=== PATIENT | female | born 1945 | race Caucasian/White ===

== ENCOUNTER → 2023-10-23 10:30 | Outpatient (REF) | payer MEDICARE, SELFPAY | LOC: WDC 10:30 | PROVIDERS: ATTENDING PHYSICIAN Surgery; FAMILY PHYSICIAN Family Medicine | DX: Z12.31 Encounter for screening mammogram for malignant neoplasm of breast (principal); C50.411 Malignant neoplasm of upper-outer quadrant of right female breast | CPT/HCPCS: 77063; 77067 ==

== ENCOUNTER → 2024-01-20 10:27 | Outpatient (REF) | payer MEDICARE, SELFPAY | LOC: HWRAD 10:27 | PROVIDERS: ATTENDING PHYSICIAN Nurse Practitioner Family; FAMILY PHYSICIAN Family Medicine | DX: N81.2 Incomplete uterovaginal prolapse (principal) | CPT/HCPCS: 76830; 76856 ==

== ENCOUNTER 2024-08-23 12:23 | Emergency (ER) | payer MEDICARE, SELFPAY ==
[2024-08-23] VITALS (21 sets, daily range): BP systolic 122–160; BP diastolic 53–82
[2024-08-23] MEDS: DILAUDID 0.5 MG IV (12:41)
--- NOTE | 2024-08-23 13:32 | ED.MUSCINJ ---
HPI-Injury
<Benigno Amado PA-C - Last Filed: 08/23/24 14:03>
General
Chief Complaint: Musculo-Skeletal Complaint
Source: patient
Exam Limitations: none
Time Seen by Provider: 08/23/24 12:33
History of Present Illness-Injury
Initial Injury comments:
Patient 79-year-old female presents via EMS from home with complaints of left hip pain. She states she turned to her left and felt a pop in her and since then has had pain and deformity to the left leg. She has a remote history of left hip
replaced. She did not hit her head. She is not anticoagulated.
Past History
<Benigno Amado PA-C - Last Filed: 08/23/24 14:03>
Past History
ED Past Medical History: Other (spinal stenosis, under care of [facility] )
ED Past Surgical History: and Orthopedic (Laminectomy, left hip replacement)
Social History
Tobacco: Non-smoker
Personal:
Living: alone
Employment: Retired
Phy Exam
<ARTEM Ferrari Last Filed: 08/23/24 14:03>
Physical Exam
Physical Exam:
General: Well-appearing female no acute respiratory distress
HEENT: Normocephalic atraumatic
Heart: Regular rate and rhythm
Lungs: Clear no wheeze
Musculoskeletal exam: Left leg is shortened and internally rotated she is tender about the hip
Vascular: 2+ DP pulse left foot
Injury Course
<Benigno Amado PA-C - Last Filed: 08/23/24 14:03>
Orders/Labs/Results
Orders:
Orders
08/23/24 12:37
CR Hip - LT without Pel 1 Vw Urgent
Comment:
Reason For Exam: dislocation
08/23/24 12:38
HYDROmorphone [Dilaudid] 0.5 mg IV NOW STA
08/23/24 13:04
Propofol [Diprivan] 20 ml .ROUTE .STK-MED
08/23/24 13:22
CR Hip - LT without Pel 1 Vw Urgent
Comment:
Reason For Exam: post reduction
<Fox Rowland MD - Last Filed: 08/23/24 14:01>
Orders/Labs/Results
Orders:
Orders
08/23/24 12:37
CR Hip - LT without Pel 1 Vw Urgent
Comment:
Reason For Exam: dislocation
08/23/24 12:38
HYDROmorphone [Dilaudid] 0.5 mg IV NOW STA
08/23/24 13:04
Propofol [Diprivan] 20 ml .ROUTE .STK-MED
08/23/24 13:22
CR Hip - LT without Pel 1 Vw Urgent
Comment:
Reason For Exam: post reduction
Procedures
<Benigno Amado PA-C - Last Filed: 08/23/24 14:03>
Moderate Sedation
ASA Risk Score: Class II
Chart and allergies reviewed: Yes
Consent for anesthesia obtained: Yes
Time out completed (validating right patient & procedure): Yes
Moderate Sedation Start Time(when first medication is given): 13:18
History of difficult intubation: No
Airway free of obstruction: Yes
Patient has a gag reflex: Yes
Patient is able to open mouth: Yes
Patient has no dentures: Yes
Patient has no loose teeth: Yes
Medication administered by Provider during Moderate Sedation: IV Propofol (mg)
Total dose administered: 70
Time drug administered: 13:18
Moderate Sedation Procedure End Time: 18:31
<Benigno Amado PA-C - Last Filed: 08/23/24 14:03>
MDM/Problems Addressed
Differential Diagnosis Includes:
Left hip pain and deformity question fracture versus dislocation
I personally visualized x-rays of the left hip which demonstrate superior dislocation of the femoral head without associated fracture
Written consent obtained for moderate sedation and closed reduction.
<Benigno Amado PA-C - Last Filed: 08/23/24 14:03>
*Critical Care Note
Total Time (30-74mins, 75-104mins- exclusive of procedures): Not Applicable
<Benigno Amado PA-C - Last Filed: 08/23/24 14:03>
Update Note
Update Note:
Moderate sedation performed by emergency room attending. Hip reduction was performed with hip flexion and longitudinal traction with slight internal rotation. There was a clunk felt and the leg was realigned and there was no further deformity of
internal rotation or shortening. Postreduction films demonstrated successful reduction of the hip dislocation.
ED Attending Note
<Benigno Amado PA-C - Last Filed: 08/23/24 14:03>
-
Portions of this chart may have been created with voice recognition software.� Occasional wrong word or��sound alike� substitutions may have occurred due to the inherent limitations of voice recognition software.
<Fox Rowland MD - Last Filed: 08/23/24 14:01>
ED Attending Note
Patient seen and examined by attending physician: Yes
ED Attending Note:
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 Patient fell down subsequently. Denies any other injuries. Denies loss of sensation or weakness. Patient does have
history of hip replacement over 10 years ago.
Physical Exam
General: mild painful distress, not acutely ill. afebrile
Head: nc/at. eomi
Neck: supple. normal range of motion
Abdomen: normal bowel sounds. not tender.
Neuro: alert and oriented x 3. no focal neurological deficits
Skin: no rash
Psychiatric: well kept. interactive and cooperative
Extremities: LLE shortened and rotated, with moderate tenderness to palpation
History, exam, and x-ray consistent with hip dislocation. Procedure consent on the chart.
After sedation with propofol, hip dislocation successfully reduced, confirmed via repeat x-ray. Patient will be discharged home in stable condition, with recommendation to follow-up with orthopedic surgeon for an outpatient evaluation.
Discharge Plan
Departure
Patient Disposition: Home (Routine Discharge)
Date of Disposition: 08/23/24
Time of Disposition: 14:03
Patient with high blood pressure during this ER visit?: No
Discharge Problem:
Dislocation of hip prosthesis
Instructions: MODERATE SEDATION ADULT
Prescriptions:
No Action
diphenhydramine HCl [Banophen] 50 MG capsule
50 mg PO QID PRN (Reason: itching rash)
hydrocodone-acetaminophen 1 TABLET tablet
1 tab PO Q4HPRN PRN (Reason: pain>4/10) Qty: 20 0RF
Rx Instructions:
take with daily stool softener
Activity Restrictions/Additional Instructions:
Rest. Use Tylenol or ibuprofen if needed for pain. Follow-up with your orthopedic doctor.
Interventions
Interventions:
*Risk Screen - Suicide Last Done: 08/23/24 12:27
*General Assessment Last Done: 08/23/24 12:27
*Neglect/Abuse Screening Last Done: 08/23/24 12:27
*ED- Fall Risk Assessment Last Done: 08/23/24 12:27
*ED COVID-19 Vaccine History Last Done: 08/23/24 12:27
Discharge Date and Time
Print Language: [place]
== END 2024-08-23 14:37 | disposition home or self-care (01) ==
LOC: EMR 12:23
PROVIDERS: EMERGENCY PHYSICIAN Emergency Medicine; FAMILY PHYSICIAN Family Medicine
DX: T84.021A Dislocation of internal left hip prosthesis, initial encounter (principal); X58.XXXA Exposure to other specified factors, initial encounter
CPT/HCPCS: 27265; 99152; 99285; 96374; 73501

== ENCOUNTER → 2024-09-14 10:06 | Outpatient (REF) | payer MEDICARE, SELFPAY | LOC: HWRAD 10:06 | PROVIDERS: ATTENDING PHYSICIAN Internal Medicine Endocrinology, Diabetes & Metabolism; FAMILY PHYSICIAN Family Medicine | DX: E04.2 Nontoxic multinodular goiter (principal) | CPT/HCPCS: 76536 ==

== ENCOUNTER → 2024-10-12 12:23 | Outpatient (REF) | payer MEDICARE, SELFPAY | LOC: MRI 12:23 | PROVIDERS: ATTENDING PHYSICIAN Specialist; FAMILY PHYSICIAN Family Medicine | DX: M25.551 Pain in right hip (principal); R26.89 Other abnormalities of gait and mobility | CPT/HCPCS: 72148; 73721 ==

== ENCOUNTER → 2024-10-26 11:10 | Outpatient (REF) | payer MEDICARE, SELFPAY | LOC: WDC 11:10 | PROVIDERS: ATTENDING PHYSICIAN Surgery; FAMILY PHYSICIAN Family Medicine | DX: Z12.31 Encounter for screening mammogram for malignant neoplasm of breast (principal) | CPT/HCPCS: 77063; 77067 ==

== ENCOUNTER 2025-01-11 16:29 | Emergency (ER) | payer MEDICARE, OTHER, SELFPAY ==
[2025-01-11] VITALS (13 sets, daily range): BP systolic 124–163; BP diastolic 58–98
--- NOTE | 2025-01-11 16:48 | ED.MUSCINJ ---
HPI-Injury
<Nataliia Amin NP - Last Filed: 01/11/25 19:02>
General
Chief Complaint: Musculo-Skeletal Complaint
Source: patient
Exam Limitations: none
Time Seen by Provider: 01/11/25 16:34
Nursing documentation reviewed up to this point in time: agreed with
History of Present Illness-Injury
Is this injury a work related problem?: No
Is pt an associate of [facility]?: No
Initial Injury comments:
Patient states she was seated, bent forward to put her shoe on and felt a pop to left hip. SHe had left hip replacement approx 10yrs ago in [facility]. Hip has dislocated i the past. Last dislocation was this past spring. SHe states she tried to stand
to see if hip would reduce on own but it did not. SHe then lowered herself to the floor and crawled over to her bed. She denies falling, denies hitting her head. COmplains of pain to left hip. To ED by EMS. Injury occurred just PLANNING COORDINATOR
Past History
<Nataliia Amin NP - Last Filed: 01/11/25 19:02>
Past History
ED Past Medical History: Other (spinal stenosis, under care of [facility] )
ED Past Surgical History: and Orthopedic (Laminectomy, left hip replacement)
Social History
Tobacco: Non-smoker
Personal:
Living: alone
Employment: Retired
Review of Systems
<Nataliia Amin NP - Last Filed: 01/11/25 19:02>
Review of Systems
Allergies reviewed?: Yes
All Other Systems: ROS reviewed and negative except as documented in HPI and ROS
Constitutional: Reports no symptoms
EENT: Reports no symptoms
Respiratory: Reports no symptoms
Cardiac: Reports no symptoms
ABD/GI: Reports no symptoms
Musculoskeletal: Reports joint pain (pain to left hip. LLE shortened, rotated.)
Skin: Reports no symptoms
Neurological: Reports no symptoms
Psychiatric: Reports no symptoms
Musculoskeletal Injury Exam
<Nataliia Amin NP - Last Filed: 01/11/25 19:02>
Musculoskeletal Injury Exam
Left Hip:
Pain with Movement?: Moderate
Tender to palpation?: Moderate
Soft tissue swelling?: None
External deformity and angulation?: Mild
Joint effusion?: None
Contusion?: None
Hematoma-local bleeding into tissue?: None
Strain- Sprain- Tear (Connective tissue injury)?: Moderate
Crepitus with movement?: No
Joint instability?: No
Malalignment/deformity?: No
Range of motion: Limited
Distal skin color and temperature: normal-warm & good color
Capillary Refill: normal
Normal distal neurovascular exam?: Yes
Phy Exam
<Nataliia Amin NP - Last Filed: 01/11/25 19:02>
General Physical Exam
General Presentation: well appearing and mild distress
General age: appears stated age
General Skin: warm and dry
General Habitus: normal
General Mental: alert
Musculoskeletal Exam
Musculoskeletal Exam: neuro vasc intact
Skin Exam
Skin Exam: normal color, warm/dry and no rash
Psychiatric Exam
Psychiatric Exam: normal mood/affect
Injury Course
<Nataliia Amin NP - Last Filed: 01/11/25 19:02>
Orders/Labs/Results
Orders:
Orders
01/11/25 16:45
Hip, Left 2-3 Views [CR Hip - LT w/wo Pel 2-3 Vw*] Urgent
Comment:
Reason For Exam: fall
Include a pelvis x-ray?: Yes
01/11/25 16:48
HYDROmorphone [Dilaudid] 0.5 mg IV NOW STA
Ondansetron Injectable [Zofran] 4 mg IV NOW STA
01/11/25 17:31
Propofol [Diprivan] 20 ml .ROUTE .STK-MED
01/11/25 17:55
Hip, Left 2-3 Views [CR Hip - LT w/wo Pel 2-3 Vw*] Urgent
Comment:
Reason For Exam: post reduction
Include a pelvis x-ray?: No
<Tucker Mijares MD - Last Filed: 01/11/25 18:03>
Orders/Labs/Results
Orders:
Orders
01/11/25 16:45
Hip, Left 2-3 Views [CR Hip - LT w/wo Pel 2-3 Vw*] Urgent
Comment:
Reason For Exam: fall
Include a pelvis x-ray?: Yes
01/11/25 16:48
HYDROmorphone [Dilaudid] 0.5 mg IV NOW STA
Ondansetron Injectable [Zofran] 4 mg IV NOW STA
01/11/25 17:31
Propofol [Diprivan] 20 ml .ROUTE .STK-MED
01/11/25 17:55
Hip, Left 2-3 Views [CR Hip - LT w/wo Pel 2-3 Vw*] Urgent
Comment:
Reason For Exam: post reduction
Include a pelvis x-ray?: No
Procedures
<Nataliia Amin NP - Last Filed: 01/11/25 19:02>
Moderate Sedation
ASA Risk Score: Class I
Chart and allergies reviewed: Yes
Consent for anesthesia obtained: Yes
Time out completed (validating right patient & procedure): Yes
Moderate Sedation Start Time(when first medication is given): 17:49
History of difficult intubation: No
Airway free of obstruction: Yes
Patient has a gag reflex: Yes
Patient is able to open mouth: Yes
Patient has no dentures: Yes
Patient has no loose teeth: Yes
Medication administered by Provider during Moderate Sedation: IV Propofol (mg)
Total dose administered: 100
Time drug administered: 17:49
Moderate Sedation Procedure End Time: 18:04
Comment: Administered by Dr. Mijares
Joint/Fracture Reduction
Left Hip:
Indication for procedure:: dislocation
Procedure completed by: Nataliia Davis
Consent form signed: Yes
Joint reduced: with anesthesia sedation
Anesthesia/sedation: Moderate sedation
Injury was: closed
Further treatement: needs re-check only
Post reduction exam: stable
Capillary Refill: normal
Normal distal neurovascular exam?: Yes
<Nataliia Amin NP - Last Filed: 01/11/25 19:02>
*Radiology
Radiology exam reviewed: radiology read reviewed
*Pulse Oximetry
SaO2: 99
Oxygen Mode of Delivery: Room air
Patient hypoxic: no
*Critical Care Note
Total Time (30-74mins, 75-104mins- exclusive of procedures): Not Applicable
<Nataliia Amin NP - Last Filed: 01/11/25 19:02>
Update Note
Update Note:
Patient to ED after suspected left hip dislocation while bending forward from seated postition. LTHR approx 10yrs ago, has had prior dislocations.
Xray confirms dislocation. Moderate sedation with Propofol given by Dr. Mijares and joint successfully reduced bedside. Post reduction xray confirms proper posistion of prosthetic device. Knee immobilizer applied.
Patient tolerated moderate sedation and procedure without incident. SHe is currently AAO. WIll discharge home with knee immobilizer inplace. Recommend orthopedic follow up. Given instructions on s/s to return to ED and she is agreeable to plan.
ED Attending Note
<Nataliia Amin NP - Last Filed: 01/11/25 19:02>
-
Portions of this chart may have been created with voice recognition software.� Occasional wrong word or��sound alike� substitutions may have occurred due to the inherent limitations of voice recognition software.
<Tucker Mijares MD - Last Filed: 01/11/25 18:03>
ED Attending Note
Patient seen and examined by attending physician: Yes
ED Attending Note:
I have seen and evaluated the patient with a [id number] encounter. I have spoken to the advance practicer provider and involved in the medical history, the physical exam, medical decision making.
Evaluation and management service: agree unless noted differently below.
Results interpretation: agree unless noted differently below.
Focused HPI: 79-year-old female with history as noted significant for left hip replacement 10 years ago in [place] presents to the ER for evaluation of left hip pain and concern for a dislocation. Patient reports that she bent over to tie her
shoes and felt her left hip pop similar to prior dislocation. Came to the ER for assessment.
Physical exam: Awake and alert, laying flat in bed not in distress. Vital signs are normal. Left leg is shortened and externally rotated. Strong palpable left DP pulse, motor and sensory intact distal left lower extremity.
Medical Decision Makin-year-old female presents for evaluation of left hip pain after bending over similar to prior dislocations. X-ray performed here shows prosthetic hip dislocation. Will proceed with reduction under sedation.
Left hip reduced successfully under moderate sedation as documented in procedure note. Patient tolerated procedure well. Post reduction x-ray confirms appropriate position. Patient placed in a knee immobilizer. Given that this is her second
dislocation of this prostheses referred to orthopedic surgeon for reassessment. Given hip precautions. Will monitor after sedation plan to likely discharge.
Discharge Plan
Departure
Patient Disposition: Home (Routine Discharge)
Date of Disposition: 01/11/25
Time of Disposition: 18:58
Patient with high blood pressure during this ER visit?: No
Condition: Good
Covid-19: Not Applicable
Discharge Problem:
Hip dislocation, left
Instructions: Knee Immobilizer (DC), Hip Dislocation (DC), Ibuprofen, Using Cold for Pain
Prescriptions:
No Action
diphenhydramine HCl [Banophen] 50 MG capsule
50 mg PO QID PRN (Reason: itching rash)
hydrocodone-acetaminophen 1 TABLET tablet
1 tab PO Q4HPRN PRN (Reason: pain>4/10) Qty: 20 0RF
Rx Instructions:
take with daily stool softener
Referrals:
Matt Quinteros MD [Active, Orthopedics] - Call in 1-3 days for appt
Janelle Cavazos DO [Family Provider, Family Practice]
Interventions
Interventions:
*Risk Screen - Suicide Last Done: 01/11/25 16:37
*General Assessment Last Done: 01/11/25 16:37
*Neglect/Abuse Screening Last Done: 01/11/25 16:37
*ED COVID-19 Vaccine History Last Done: 01/11/25 16:37
ED-Musculoskeletal Assessment Last Done: 01/11/25 17:20
Discharge Date and Time
Print Language: LATVIAN
[2025-01-11] MEDS: DILAUDID 0.5 MG IV (16:52)
[2025-01-11] MEDS: ZOFRAN 4 MG IV (16:52)
== END 2025-01-11 19:30 | disposition home or self-care (01) ==
LOC: EMR 16:29
PROVIDERS: EMERGENCY PHYSICIAN Emergency Medicine; FAMILY PHYSICIAN Family Medicine
DX: T84.021A Dislocation of internal left hip prosthesis, initial encounter (principal); Y79.2 Prosthetic and other implants, materials and accessory orthopedic devices associated with adverse incidents
CPT/HCPCS: 27265; 99152; 96374; 96375; 99285; 73502